=== PATIENT | female | born 1975 | race Caucasian/White ===

== ENCOUNTER → 2023-04-21 15:01 | Outpatient (REF) | payer OTHER, SELFPAY | LOC: WDC 15:01 | PROVIDERS: ATTENDING PHYSICIAN Nurse Practitioner Family; FAMILY PHYSICIAN Family Medicine | DX: Z12.31 Encounter for screening mammogram for malignant neoplasm of breast (principal) | CPT/HCPCS: 77063; 77067 ==

== ENCOUNTER → 2023-04-24 08:10 | Outpatient (REF) | payer OTHER, SELFPAY | LOC: HWRAD 08:10 | PROVIDERS: ATTENDING PHYSICIAN Family Medicine | DX: R10.84 Generalized abdominal pain (principal); R10.2 Pelvic and perineal pain | CPT/HCPCS: 74177; Q9967 ==

== ENCOUNTER → 2023-05-19 08:02 | Outpatient (REF) | payer OTHER, SELFPAY | LOC: RAD 08:02 | PROVIDERS: ATTENDING PHYSICIAN Family Medicine | DX: R10.84 Generalized abdominal pain (principal) | CPT/HCPCS: 78264; A9541 ==

== ENCOUNTER 2024-12-12 10:10 | Emergency (ER) | payer BC, SELFPAY ==
[2024-12-12 10:11] VITALS: BP 116/78
--- NOTE | 2024-12-12 10:56 | ED.GENMED ---
History of Present Illness
General
Chief Complaint: Musculo-Skeletal Complaint
Source: patient
Exam Limitations: none
Time Seen by Provider: 12/12/24 10:20
Nursing documentation reviewed up to this point in time: agreed with
History of Present Illness
History of Present Illness:
49-year-old female with a past medical history of fibromyalgia and migraines presents to the ER for evaluation of back pain. Patient reports that symptoms started yesterday when she bent over to check something on the ground that she said she
flexed forward and had immediate pain in the low back radiating up her spine. She says the pain has been constant since then, worse with movement. She says that in the middle of the night she woke up and felt the urge to urinate but was not able
to urinate more than a few drops which is very unusual for her. Continue to have issues urinating this morning and while she was at work she says that she was on a meeting and had sudden incontinence of her stools. She has had back pains and
herniated disks in the past but never has had symptoms such as these which prompted her to call her orthopedist that she said she was referred to the ER for assessment. She has not had any radicular symptoms/shooting pains. She denies any saddle
anesthesia. She denies any weakness or numbness in the legs and has been able to ambulate. Denies any other acute complaints.
Past History
Past History
ED Past Medical History: Other (migraines)
Social History
Tobacco: Non-smoker
Alcohol: Occasional
Drug: None
Personal: Single
Living: with family
Review of Systems
Review of Systems
All Other Systems: ROS reviewed and negative except as documented in HPI and ROS
Constitutional: Denies fever or chills
Respiratory: Denies trouble breathing
Cardiac: Denies chest pain
ABD/GI: Denies abdominal pain
: Reports incontinence; Denies flank pain
Musculoskeletal: Reports back pain
Neurological: Denies headache, weakness or numbness
Phy Exam
Physical Exam
Physical Exam:
General: Awake, alert, oriented x3; no acute distress
Head: Normocephalic, atraumatic
Eyes: Conjunctiva normal
Throat: Airway intact, handling secretions
Neck: Trachea midline
Lungs: Breathing comfortably not in distress
Heart: Regular rate
Rectal: Good rectal tone noted, perineal sensation intact
Neuro: Cranial nerves intact, motor and sensory intact proximally and distally in the lower extremities with good strength on resistance to gravity on leg lift, good strength on plantar and dorsiflexion of the feet bilaterally, good sensory exam
throughout the legs
Back: No midline tenderness in the thoracic or lumbar spine but she does have left paraspinal tenderness in the lower lumbar region
Extremities: No edema in extremities, equal pulses in all extremities
Scores
Heart Failure Risk
Heart Failure Risk Score: Not Applicable
Heart Score for Chest Pain Patients
STEMI patient?: Not applicable
Withdrawal Assessment of Alcohol
Withdrawal Assessment Completed?: Not applicable
Course
Orders/Labs/Results
Orders:
Orders
12/12/24 10:37
Bladder Scan- Treatment ONCE
MR Lumbar Without Contrast Urgent
Comment:
Reason For Exam: back pain, urinary retention, fecal incontinence
Recent pill cam endoscopy?: No
12/12/24 11:05
Type+Screen Urgent
Complete Blood Count/With Diff Urgent
Comprehensive Metabolic Panel Urgent
PTT Urgent
Prothrombin Time Urgent
Abnormal Lab Results
12/12/24
11:05
WBC 4.2 L 10^3/uL
(4.8-10.8)
RBC 4.07 L 10^6/uL
(4.20-5.40)
Hgb 11.9 L g/dL
(12.0-16.0)
Hct 36.1 L %
(37.0-47.0)
MPV 11.0 H fL
(7.4-10.4)
Chloride 109 H mmol/L
(98-107)
12/12/24 11:05
12/12/24 11:05
Vital Signs
Initial and Last Documented VS:
Initial Vital Signs
Temp Pulse Resp BP Pulse Ox
36.6 C 90 18 116/78 100
12/12/24 10:11 12/12/24 10:11 12/12/24 10:11 12/12/24 10:11 12/12/24 10:11
Last Documented Vital Signs
Temp Pulse Resp BP Pulse Ox
36.6 C 90 18 116/78 100
12/12/24 10:11 12/12/24 10:11 12/12/24 10:11 12/12/24 10:11 12/12/24 11:00
MDM/Problems Addressed
Differential Diagnosis Includes:
Disc herniation, radiculopathy, muscle strain, cauda equina syndrome
MDM/Problems Addressed:
49-year-old female presents for evaluation of low back pain after bending over yesterday. Has had some issues urinating as well as 1 episode of fecal incontinence this morning. No radicular symptoms, no weakness or numbness in the legs, ambulatory
into the ER today. Vitals and exam as above. Given her back pain with reported retention of urine and incontinence will check MR with concern for potentially cauda equina syndrome although she had good rectal tone on exam and is ambulatory with no
weakness or numbness in the legs or radicular symptoms. Discussed with radiologist to facilitate this study. Will send screening labs. Reassess after the above.
Screening labs reviewed no clinically significant abnormalities. MRI lumbar spine reviewed: no spinal canal stenosis. No postvoid residual on repeat bladder scan. At this point nothing to suggest cauda equina syndrome. Will discharge with
referral to her normal orthopedist. Patient comfortable with this plan. All questions answered.
*Radiology
Radiology exam reviewed: radiology read reviewed
*Pulse Oximetry
SaO2: 100
Oxygen Mode of Delivery: Room air
Patient hypoxic: no (100%)
*Critical Care Note
Total Time (30-74mins, 75-104mins- exclusive of procedures): Not Applicable
Data Reviewed
Source: patient and records
Patient Management
Discussion with other providers: Radiologist (Discussed with radiologist)
ED Attending Note
-
Portions of this chart may have been created with voice recognition software.� Occasional wrong word or��sound alike� substitutions may have occurred due to the inherent limitations of voice recognition software.
Discharge Plan
Departure
Patient Disposition: Home (Routine Discharge)
Date of Disposition: 12/12/24
Time of Disposition: 14:44
Patient with high blood pressure during this ER visit?: No
Discharge Problem:
Back pain
Instructions: Back Pain
Prescriptions:
No Action
meloxicam [Mobic] 15 mg Tablet
15 mg PO PRN PRN (Reason: Pain)
duloxetine [Cymbalta] 30 mg Capsule,Delayed Release(Dr/Ec)
30 mg PO HS
topiramate 50 mg Tablet
50 mg PO QPM
Referrals:
Kevin Huerta DO [Family Provider, [facility]] - Follow up in 5-7 days
Activity Restrictions/Additional Instructions:
Thank you for visiting the Emergency Department at [facility].
1. Please schedule a follow up appointment as directed. Call first thing tomorrow morning to make an appointment.
2. If indicated, please take your medications as instructed and indicated on discharge paperwork.
3. If any of your symptoms do not improve, or persist, or become more severe within 6-12 hours, please return to the emergency department for further care.
4. Please return to the emergency department if you develop a headache, neck pain/stiffness, fever greater than 100.4F, chest pain, shortness of breath, persistent nausea, vomiting, slurred speech, difficulty walking, numbness/tingling, weakness,
signs of infection or any other symptoms that are worrisome to you.
Please call [phone] if you have any questions.
Interventions
Interventions:
*Risk Screen - Suicide Last Done: 12/12/24 10:11
*General Assessment Last Done: 12/12/24 11:08
*Neglect/Abuse Screening Last Done: 12/12/24 11:08
*ED- Fall Risk Assessment Last Done: 12/12/24 11:08
*ED COVID-19 Vaccine History Last Done: 12/12/24 11:08
*ED Influenza Vaccine History Last Done: 12/12/24 11:08
ED-Musculoskeletal Assessment Last Done: 12/12/24 11:08
Discharge Date and Time
Print Language: SYRIAC
[2024-12-12 11:21] LABS: Hematocrit 36.1 % (37.0-47.0); Hemoglobin 11.9 g/dL (12.0-16.0); Mean Corp Hgb Conc. 33.0 g/dL (33.0-37.0); Mean Corpuscular Volume 88.7 fL (81.0-99.0); Nucleated Red Blood Cells % 0 %; Platelet Count 175 10^3/uL (130-400); Red Cell Dist. Width 13.0 % (11.5-14.5)
[2024-12-12 11:31] LABS: APTT 25.2 Sec (23.4-35.0); INR 1.04; PT 13.9 Sec (11.4-14.6)
[2024-12-12 11:41] LABS: ALT (SGPT) 14 U/L (0-35); AST (SGOT) 17 U/L (14-36); Albumin 4.1 g/dl (3.5-5.0); Alkaline Phosphatase 50 U/L (38-126); Blood Urea Nitrogen 11 mg/dl (7-17); Calcium 8.9 mg/dl (8.4-10.2); Carbon Dioxide 23 mmol/L (22-30); Chloride 109 mmol/L (98-107); Glucose 85 mg/dl (70-99); Potassium 4.1 mmol/L (3.5-5.1); Sodium 137 mmol/L (135-145); Total Protein 6.9 g/dl (6.3-8.2); eGFR > 60.00
== END 2024-12-12 15:30 | disposition home or self-care (01) ==
LOC: EMR 10:10
PROVIDERS: EMERGENCY PHYSICIAN Emergency Medicine; FAMILY PHYSICIAN Family Medicine
DX: M54.50 Low back pain, unspecified (principal); X50.1XXA Overexertion from prolonged static or awkward postures, initial encounter; M79.7 Fibromyalgia
CPT/HCPCS: 99284; 72148; 80053; 85025; 85610; 85730; 86850; 86900; 86901